=== PATIENT | female | born 1985 | race African-American/Black ===

== ENCOUNTER 2019-11-08 18:46 | Emergency (ER) | payer BC, OTHER ==
[~2019-11-08] VITALS: Ht 162.6 cm; Wt 90.7 kg
[2019-11-08 19:09] LABS: URINE BILIRUBIN NEGATIVE (Negative); URINE BLOOD NEGATIVE (Negative); URINE CLARITY CLEAR; URINE COLOR YELLOW; URINE GLUCOSE-RANDOM* NEGATIVE (Negative); URINE KETONES NEGATIVE (Negative); URINE LEUKOCYTES-REFLEX NEGATIVE (Negative); URINE NITRITE-REFLEX NEGATIVE (Negative); URINE PROTEIN (DIPSTICK) NEGATIVE (Negative); URINE SPECIFIC GRAVITY 1.025 (1.005-1.035); URINE UROBILINOGEN 0.2 E.U./dl (0.2-1.0)
[2019-11-08 19:57] LABS: ABSOLUTE NEUTROPHILS 5.9 thou/uL (1.4-8.2); BASOPHILS 0.8 % (0.0-2.0); EOSINOPHILS 4.2 % (0.0-3.0); HEMATOCRIT 33.9 % (37.0-47.0); HEMOGLOBIN 11.1 gm/dL (12.0-15.0); LYMPHOCYTES 20.9 % (24.0-44.0); MCH 26.9 pg (26.0-34.0); MCHC 32.7 g/dL (28.0-37.0); MCV 82.3 fL (80.0-100.0); MONOCYTES 5.2 % (1.0-8.0); PLATELET COUNT 304 thou/uL (150-400); POLYS 68.9 % (36.0-66.0); RBC 4.12 mil/uL (4.20-5.00); RDW 15.1 % (10.5-14.5); WBC 8.6 thou/uL (4.0-11.0)
[2019-11-08 20:00] LABS: ANION GAP 8 mmol/L (7-16); BUN 14 mg/dL (7-18); CALCIUM 8.7 mg/dL (8.5-10.1); CHLORIDE 100 mmol/L (98-107); CO2 27 mmol/L (21-32); CREATININE 0.8 mg/dL (0.6-1.0); GLUCOSE 93 mg/dL (74-106); POTASSIUM 3.3 mmol/L (3.5-5.1); SODIUM 135 mmol/L (136-145)
[2019-11-08 20:06] LABS: LIPASE 143 U/L (73-393); SGOT 17 U/L (15-37); SGPT 21 U/L (30-65); TOTAL BILIRUBIN 0.3 mg/dL (0.2-1.0); TOTAL PROTEIN 8.1 g/dL (6.4-8.2)
[2019-11-08 20:07] LABS: DIRECT BILIRUBIN < 0.1 mg/dL (<0.1-0.2)
[2019-11-08 21:58] VITALS: BP 112/68
== END 2019-11-08 22:02 | disposition home or self-care (01) ==
LOC: ER 18:46
PROVIDERS: Emergency Medicine
DX: S39.011A Strain of muscle, fascia and tendon of abdomen, initial encounter (principal); X50.0XXA Overexertion from strenuous movement or load, initial encounter; Y93.89 Activity, other specified; Y92.89 Other specified places as the place of occurrence of the external cause; Y99.0 Civilian activity done for income or pay

== ENCOUNTER 2020-02-22 01:24 | Emergency (ER) | payer BC, OTHER ==
[~2020-02-22] VITALS: Ht 165.1 cm; Wt 88.0 kg
[2020-02-22 02:44] LABS: ABSOLUTE NEUTROPHILS 5.3 thou/uL (1.4-8.2); BASOPHILS 0.6 % (0.0-2.0); EOSINOPHILS 4.1 % (0.0-3.0); HEMATOCRIT 33.7 % (37.0-47.0); LYMPHOCYTES 23.4 % (24.0-44.0); MCH 25.9 pg (26.0-34.0); MCHC 32.6 g/dL (28.0-37.0); MCV 79.2 fL (80.0-100.0); MONOCYTES 5.6 % (1.0-8.0); PLATELET COUNT 298 thou/uL (150-400); POLYS 66.3 % (36.0-66.0); RBC 4.25 mil/uL (4.20-5.00); RDW 16.4 % (10.5-14.5); WBC 7.9 thou/uL (4.0-11.0)
[2020-02-22 02:48] LABS: ANION GAP 10 mmol/L (7-16); BUN 11 mg/dL (7-18); CALCIUM 8.9 mg/dL (8.5-10.1); CHLORIDE 102 mmol/L (98-107); CO2 26 mmol/L (21-32); CREATININE 0.8 mg/dL (0.6-1.0); GLUCOSE 92 mg/dL (74-106); POTASSIUM 3.4 mmol/L (3.5-5.1); SODIUM 138 mmol/L (136-145)
[2020-02-22 02:58] LABS: ALBUMIN 3.6 g/dL (3.4-5.0); LIPASE 132 U/L (73-393); SGOT 14 U/L (15-37); SGPT 20 U/L (30-65); TOTAL BILIRUBIN 0.2 mg/dL (0.2-1.0); TOTAL PROTEIN 7.9 g/dL (6.4-8.2); TROPONIN-I <0.06 ng/mL (<0.06)
[2020-02-22] MEDS ORDERED: XANAX 0.5 MG0.5 M1 PO (03:30)
[2020-02-22 03:33] VITALS: BP 117/84
--- NOTE | 2020-02-22 07:25 | EKG ---
[facility] [place] [address] ELECTROCARDIOGRAM REPORT Name: MARIAN WAKEFIELD Room #: DEP [facility]#: [id number] Admission: 02/22/20 Attend Phys: Discharge: 02/22/20 Date of : 85 Report #: [id number] THIS REPORT FOR: cc: [facility] - Clinic physician unknown [facility] - Clinic physician unknown Ady Steele MD [facility] ~ THIS REPORT FOR: //name// [facility] ED Test Date: 2020-02-22 Test Time: 02:37:02 Pat Name: MARIAN WAKEFIELD Department: Room: Gender: F Sales Development Consultant: [id number] : 1985 Requested By: Eliecer Macdonald Order Number: [id number] MD: Ady Steele Measurements Intervals [place] Rate: 64 P: 21 MD: 166 QRS: 14 QRSD: 133 T: 20 QT: 413 QTc: 426 Interpretive Statements Sinus rhythm Right bundle branch block J-Point elev, probable normal early repol pattern No previous ECG available for comparison Electronically Signed On 02-22-2020 7:25:26 CDT by Ady Steele [email or web address] <ELECTRONICALLY SIGNED> By: Ady Steele MD, FACC 02/22/20 0725 6 6 Ady Steele MD, [facility] /EPI
== END 2020-02-22 03:38 | disposition home or self-care (01) ==
LOC: ER 01:24
PROVIDERS: Emergency Medicine
DX: R06.00 Dyspnea, unspecified (principal)